=== PATIENT | male | born 1965 | race Caucasian/White ===

== ENCOUNTER 2019-06-07 09:44 | Emergency (ER) | payer OTHER ==
[~2019-06-07] VITALS: Ht 185.4 cm; Wt 126.1 kg
[2019-06-07] MEDS ORDERED: METFORMIN HCL500 MG PO (09:57)
[2019-06-07] MEDS ORDERED: VYTORIN 10-401 EACH PO (09:58)
[2019-06-07] MEDS ORDERED: SEROQUEL400 MG PO (09:59)
[2019-06-07] MEDS ORDERED: COZAAR100 MG PO (09:59)
== END 2019-06-07 12:24 | disposition home or self-care (01) ==
LOC: ER 09:44
DX: L03.114 Cellulitis of left upper limb (principal)